=== PATIENT | female | born 1995 | race Caucasian/White ===

== ENCOUNTER 2020-09-11 01:12 | Emergency (ER) | payer SELFPAY ==
[2020-09-11 01:47] LABS: BILIRUBIN,URINE NEGATIVE (NEGATIVE); GLUCOSE, URINE (UA) NEGATIVE (NEGATIVE); KETONES,URINE (UA) NEGATIVE (NEGATIVE); LEUKOCYTE ESTERASE, URINE NEGATIVE (NEGATIVE); NITRITE,URINE NEGATIVE (NEGATIVE); OCCULT BLOOD,URINE NEGATIVE (NEGATIVE); PH,URINE 7.5 PH (5.0-7.5); PROTEIN,URINE NEGATIVE (NEGATIVE); UROBILINOGEN,URINE 1 (NORMAL) E.U./dL (NORMAL)
[2020-09-11 01:51] LABS: CLARITY,URINE CLEAR (CLEAR)
[2020-09-11 01:52] LABS: HCG UR QUAL NEGATIVE
--- NOTE | 2020-09-11 02:01 | ED Physician Documentation ---
PD HPI FEMALE - Stated complaint Stated Complaint: LRQ PX/GROIN PX - Chief complaint Chief Complaint: Abd Pain - History obtained from History obtained from: Patient, Family, Other (History is obtained through a forensic document examiner via [employer]) - History of Present Illness Timing - onset: Today Timing - duration: Minutes Timing - details: Abrupt onset, Still present Associated symptoms: Pelvic pain, Other (pain to rectum to sit) Contributing factors: No: Similar symptoms before: Has not had sx before Recently seen: Not recently seen - Additional information Additional information: 25-year-old Romanian-speaking female patient reports that she was having intercourse with her and she was quite vigorous with this following this she had severe pain in the right lower quadrant. It is much worse when she tries to move around she was not able to stand up fully with this pain and she now has pain of a 5 out of 10 when she is laying still and if she tries to move the pain is much worse. She indicates that she is having pain to sit down as well this seems to be centered on her rectum and she has a prior history of colitis. She is not currently having colitis symptoms. She last had these about 1-1/2 years ago and was treated at that time. She has not otherwise been ill recently. She did vomit once with this acute pain episode.She denies anal intercourse. Review of Systems Constitutional: denies: Fever Eyes: denies: Decreased vision Ears: denies: Ear pain Nose: denies: Rhinorrhea / runny nose, Congestion Throat: denies: Sore throat Cardiac: denies: Chest pain / pressure, Palpitations Respiratory: denies: Dyspnea, Cough GI: reports: Abdominal Pain, Vomiting. 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 - Past Surgical History Past Surgical History: Yes /STOCK LETTERER: section, Oophrectomy - Present Medications Home Medications: Ambulatory Orders Medication Instructions Recorded Confirmed HYDROcod/ACETAM 5/325 [[place] 5/325] 1 - 2 tablet PO Q6H PRN #14 tablet 09/11/20 - Allergies Allergies/Adverse Reactions: Allergies Allergy/AdvReac Type Severity Reaction Status Date / Time No Known Drug Allergies Allergy Verified 09/11/20 01:22 - Social History Does the pt smoke?: No Smoking Status: Never smoker Does the pt drink ETOH?: Yes Does the pt have substance abuse?: No - Immunizations Immunizations are current?: Yes - POLST Patient has POLST: No PD ED PE NORMAL - Vitals Vital signs reviewed: Yes (Normal) - General General: Alert and oriented X 3, No acute distress, Well developed/nourished, Other (25-year-old female laying in the position on her right side moves slowly secondary to pain.) - HEENT HEENT: Atraumatic, PERRL, EOMI - Neck Neck: Supple, no meningeal sign, No bony TTP - Cardiac Cardiac: RRR, No murmur - Respiratory Respiratory: No respiratory distress, Clear bilaterally - Abdomen Abdomen: Normal bowel sounds, Soft, Non distended, No organomegaly, Other (There is right lower quadrant pain to the right suprapubic area. There is no guarding or rebound tenderness.) - Rectal Rectal: Other (Examination of the external rectum reveals no obvious abnormality there are no hemorrhoids no bleeding and no inflammation. 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.) - Back Back: No CVA TTP, No spinal TTP - Derm Derm: Normal color, Warm and dry, No rash - Extremities Extremities: No deformity, No edema - Neuro Neuro: Alert and oriented X 3, digital photographer 2-12 intact, No motor deficit, No sensory deficit, Normal speech Eye Opening: Spontaneous Motor: Obeys Commands Verbal: Oriented GCS Score: 15 - Psych Psych: Normal mood, Normal affect Results - Vitals Vitals: Vital Signs - 24 hr 09/11/20 09/11/20 09/11/20 01:18 03:18 03:40 Temperature 36.6 C 36.8 C Heart Rate 62 61 68 Respiratory 16 16 15 Rate Blood Pressure 112/74 100/67 101/64 O2 Saturation 98 100 98 Oxygen O2 Source Room air - Labs Labs: Laboratory Tests 09/11/20 09/11/20 09/11/20 01:37 01:37 02:11 WBC 7.0 RBC 4.28 Hgb 12.7 Hct 39.3 MCV 91.8 MCH 29.7 MCHC 32.3 RDW 11.9 L Plt Count 170 MPV 10.9 H Neut # (Auto) 5.2 Lymph # (Auto) 1.0 L Garfield # (Auto) 0.5 Eos # (Auto) 0.2 Baso # (Auto) 0.0 Absolute Nucleated RBC 0.00 Nucleated RBC % 0.0 Sodium Potassium Chloride Carbon Dioxide Anion Gap BUN Creatinine Estimated GFR (MDRD) Glucose Calcium Total Bilirubin AST ALT Alkaline Phosphatase Total Protein Albumin Globulin Albumin/Globulin Ratio Lipase Urine Color YELLOW Urine Clarity CLEAR Urine pH 7.5 Ur Specific [place] 1.020 Urine Protein NEGATIVE Urine Glucose (UA) NEGATIVE Urine Ketones NEGATIVE Urine Occult Blood NEGATIVE Urine Nitrite NEGATIVE Urine Bilirubin NEGATIVE Urine Urobilinogen 1 (NORMAL) Ur Leukocyte Esterase NEGATIVE Ur Microscopic Review NOT INDICATED Urine Culture Comments NOT INDICATED Urine HCG, Qual NEGATIVE 09/11/20 02:11 WBC RBC Hgb Hct MCV MCH MCHC RDW Plt Count MPV Neut # (Auto) Lymph # (Auto) [place] # (Auto) Eos # (Auto) Baso # (Auto) Absolute Nucleated RBC Nucleated RBC % Sodium 138 Potassium 3.9 Chloride 103 Carbon Dioxide 27 Anion Gap 8.0 BUN 15 Creatinine 0.6 Estimated GFR (MDRD) 122 Glucose 138 H Calcium 9.0 Total Bilirubin 0.6 AST 22 ALT 14 Alkaline Phosphatase 42 Total Protein 6.6 L Albumin 4.3 Globulin 2.3 Albumin/Globulin Ratio 1.9 Lipase 38 Urine Color Urine Clarity Urine pH Ur Specific [place] Urine Protein Urine Glucose (UA) Urine Ketones Urine Occult Blood Urine Nitrite Urine Bilirubin Urine Urobilinogen Ur Leukocyte Esterase Ur Microscopic Review Urine Culture Comments Urine HCG, Qual - Rads (name of study) pelvic u/s Radiology: Prelim report reviewed (Impression: 1. Normal uterus. 2. Normal left ovary 3. hemorrhagic cyst on the right ovary. 4. mild to moderate amount of free fluid in the cul-de-sac with minimal debris is probable sequelae of ruptured hemorrhagic cyst.), EMP read indepedently, See rad report PD MEDICAL DECISION MAKING - ED course Complexity details: reviewed results, re-evaluated patient, considered differential, d/w patient, d/w family ED course: 25-year-old female with acute right lower pelvic pain after intercourse has a hemorrhagic cyst on ultrasound examination of the pelvis. She is administered 30 mg of Toradol and has improvement in her pain.At the conclusion of the visit the patient's pain is markedly reduced she is comfortable to move around and has agreed to follow-up with [facility]. Her questions were answered through the forensic document examiner. Departure - Departure Disposition: 01 Home, Self Care Clinical Impression: Hemorrhagic ovarian cyst Condition: Stable Instructions: ED Cyst Ovarian Follow-Up: [facility] [Provider Group] Prescriptions: HYDROcod/ACETAM 5/325 [[place] 5/325] 1 - 2 tablet PO Q6H PRN #14 tablet PRN Reason: Pain Print Language: Romanian Discharge Date/Time: 09/11/20 03:45
[2020-09-11 02:31] LABS: BASOPHILS % (AUTO) 0.4 %; EOSINOPHILS # (AUTO) 0.2 10^3/uL (0.0-0.7); EOSINOPHILS % (AUTO) 3.3 %; HCT - HEMATOCRIT 39.3 % (37.0-47.0); HGB - HEMOGLOBIN 12.7 g/dL (12.0-16.0); LYMPHOCYTES % (AUTO) 14.4 %; MEAN CORPUSCULAR HEMOGLOBIN 29.7 pg (27.0-31.0); MEAN CORPUSCULAR HGB CONC 32.3 g/dL (32.0-36.0); MEAN CORPUSCULAR VOLUME 91.8 fL (81.0-99.0); MEAN PLATELET VOLUME 10.9 fL (7.9-10.8); MONOCYTES # (AUTO) 0.5 10^3/uL (0.0-1.0); MONOCYTES % (AUTO) 7.1 %; NEUTROPHILS # (AUTO) 5.2 10^3/uL (1.5-6.6); NEUTROPHILS % (AUTO) 74.5 %; PLT - PLATELET COUNT 170 10^3/uL (130-450); RED BLOOD COUNT 4.28 10^6/uL (4.20-5.40); RED CELL DISTRIBUTION WIDTH 11.9 % (12.0-15.0)
[2020-09-11 02:41] LABS: ALBUMIN 4.3 g/dL (3.2-5.5); ALBUMIN/GLOBULIN RATIO 1.9 (1.0-2.2); BILIRUBIN,TOTAL 0.6 mg/dL (0.2-1.0); CREATININE 0.6 mg/dL (0.4-1.0); POTASSIUM 3.9 mmol/L (3.5-5.0); TOTAL PROTEIN 6.6 g/dL (6.7-8.2)
[2020-09-11] MEDS ORDERED: KETOROLAC 30 MG/ML VIAL IVP STA (03:07)
[2020-09-11] MEDS ORDERED: HYDROcod/ACET 5/325 Prepack 4 PO STA (03:37)
[2020-09-11 03:42] VITALS: BP 101/64
--- NOTE | 2020-09-11 09:38 | Ultrasound Report ---
PROCEDURE: Pelvic w/Transvag+Doppler Comp INDICATIONS: pelvic pain, R post coital severe TECHNIQUE: Real-time scanning was performed of the pelvic organs, with image documentation. Additional endovagi nal scanning was necessary due to incomplete visualization of the adnexal and endometrial structures by transabdominal scanning. COMPARISON: None. FINDINGS: Frontal moderate or free fluid in the pelvis with debris noted. Uterus: Uterus is normal in size at 1.2 x 4.0 x 5.4 cm. The endometrium measures 10.1 mm in combine d thickness. Ovaries: Both ovaries appropriate in size and vascularity without torsion. There is a small 1.6 cm e chogenic cyst noted in the right ovary, probable hemorrhagic cyst. IMPRESSION: Mild to moderate free fluid in pelvis with debris probably sequela of ruptured hemorrhagic cyst Small 1.6 cm right ovarian hemorrhagic cyst. Note: Final report is concordant with preliminary report provided by [employer] Reviewed by: Narendra Canada MD on 09/11/2020 8:37 AM AKIRA Approved by: Narendra Canada MD on 09/11/2020 8:37 AM AKFERCHO Station ID: [id number]
== END 2020-09-11 03:45 | disposition home or self-care (01) ==
LOC: ED 01:12
DX: N83.201 Unspecified ovarian cyst, right side (principal)
CPT/HCPCS: 36415; 80053; 81001; 81003; 81025; 83690; 85025; 87086; 93975; 96374; 99284